=== PATIENT | male | born 1990 | race Hispanic/Latino ===

== ENCOUNTER 2018-08-11 12:37 | Inpatient (IN) | payer OTHER ==
[~2018-08-11] VITALS: Ht 152.4 cm; Wt 69.9 kg
[2018-08-11] VITALS: BP 125/73
[2018-08-11] MEDS ORDERED: IPRATROPIUM/ALBUTEROL SULFATE 3 ML SOLUTION IH ONE ×2 (13:19→16:42)
[2018-08-11 13:39] LABS: BASOPHILS % (AUTO) 0.3 % (0.0-5.0); HEMATOCRIT 43.3 % (42-54); LYMPHOCYTES % (AUTO) 17.3 % (21.0-51.0); MEAN CORPUSCULAR HEMOGLOBIN 28.8 pg (27.0-33.0); MEAN CORPUSCULAR HGB CONC 33.3 g/dL (32.0-36.0); MEAN CORPUSCULAR VOLUME 86.3 fL (79-99); MONOCYTES % (AUTO) 11.7 % (3.0-13.0); NEUTROPHILS % (AUTO) 69.7 % (40.0-77.0); NUCLEATED RED BLOOD CELLS 0.1 % (0.0-0.19); PLATELET COUNT (AUTO) 443 K/uL (130-400); RED BLOOD CELL COUNT(AUTO) 5.02 MIL/uL (4.50-6.20); RED CELL DISTRIBUTION WIDTH 13.1 % (11.0-15.5); WHITE BLOOD COUNT (AUTO) 11.8 K/uL (4.8-10.8)
[2018-08-11 13:47] LABS: CREATININE 0.9 mg/dL (0.5-1.5); POTASSIUM 3.4 mmol/L (3.5-5.1)
[2018-08-11 13:52] LABS: BILIRUBIN,TOTAL 0.8 mg/dL (0.2-1.0); TOTAL PROTEIN, SERUM 8.9 g/dL (6.0-8.3)
[2018-08-11] MEDS ORDERED: ACETAMINOPHEN EXTRA STRENGTH 500 MG TABLET ONE (14:57)
[2018-08-11] MEDS ORDERED: METHYLPREDNISOLONE SOD SUCC 125MG/2ML VIAL ONE (17:26)
[2018-08-11] MEDS ORDERED: CEFTRIAXONE SODIUM 1 GM ONE (18:05)
[2018-08-11] MEDS ORDERED: AZITHROMYCIN 250 MG TABLET PO ONE (18:06)
[2018-08-11] MEDS: SODIUM CHLORIDE 0.9% 1000ML 1,000 ML IV SCH (19:20)
[2018-08-11] MEDS ORDERED: ACETAMINOPHEN 325 MG TAB PO PRN ×2 (19:30)
[2018-08-11] MEDS ORDERED: AZITHROMYCIN 500MG+NS 250ML 250 ML IV SCH (19:30)
[2018-08-11] MEDS ORDERED: CEFTRIAXONE SODIUM 1 GM IV SCH (19:30)
[2018-08-11] MEDS ORDERED: METHYLPREDNISOLONE SOD SUCC 125MG/2ML VIAL IV SCH (19:30)
[2018-08-11] MEDS ORDERED: ONDANSETRON HCL 4 MG/2 ML VIAL IV PRN (19:30)
[2018-08-11] MEDS ORDERED: GUAIFENESIN-CODEINE 5 ML SYRUP ONE (20:28)
[2018-08-11] MEDS ORDERED: ENOXAPARIN SODIUM 30 MG/0.3 ML SQ ONE (20:28)
[2018-08-11] MEDS ORDERED: FAMOTIDINE/PF 20 MG/2 ML VIAL IV ONE (20:29)
[2018-08-11] MEDS: FAMOTIDINE/PF 20 MG/2 ML VIAL IV SCH (21:00)
[2018-08-11] MEDS: ENOXAPARIN SODIUM 30 MG/0.3 ML SQ SCH (21:00)
[2018-08-11 21:48] VITALS: BP 123/66
--- NOTE | 2018-08-11 23:00 | NUR ---
SINUS TACHYCARDIA Patient's heart rate has been sinus tachycardia since admission. Patient's vital signs are stable and with normal limit. Called RICARDO Buchanan to inform him of patient's heart rate. RICARDO is aware and states it may be due to the breathing treatments. Patient is currently on Albuterol Q6. Will continue to monitor patient.
[2018-08-11] MEDS: ALBUTEROL SULFATE 0.083% 2.5 MG/3 ML INH IH SCH (23:08)
[2018-08-12] VITALS (7 sets, daily range): BP systolic 117–130; BP diastolic 73–85
[2018-08-12] MEDS ORDERED: MORPHINE SULFATE 2 MG/ML 1ML SYG ONE (00:54)
[2018-08-12] MEDS ORDERED: METHYLPREDNISOLONE SOD SUCC 125MG/2ML VIAL IV SCH (01:00)
[2018-08-12] MEDS ORDERED: MORPHINE SULFATE 4 MG/1ML SYG IV PRN (01:00)
[2018-08-12] MEDS ORDERED: MORPHINE SULFATE 2 MG/ML 1ML SYG IVP PRN (01:00)
[2018-08-12] MEDS: SODIUM CHLORIDE 0.9% 1000ML 1,000 ML IV SCH ×4 (04:10→21:21)
[2018-08-12] MEDS: GUAIFENESIN-CODEINE 5 ML SYRUP PO PRN (04:11)
[2018-08-12] MEDS: ALBUTEROL SULFATE 0.083% 2.5 MG/3 ML INH IH SCH ×3 (06:07→18:54)
[2018-08-12] MEDS: FAMOTIDINE/PF 20 MG/2 ML VIAL IV SCH ×2 (10:28→20:42)
[2018-08-12] MEDS: POTASSIUM CHLORIDE 20 MEQ ERTAB PO SCH (10:28)
[2018-08-12] MEDS: ENOXAPARIN SODIUM 30 MG/0.3 ML SQ SCH ×2 (10:29→20:43)
--- NOTE | 2018-08-12 14:46 | NUR ---
DCP CM met with pt [employer] guard at bedside. Pt under care of [employer] custody, independent with ambulation and ADL's. Denies any equipments/services. DC plan w/INS. CM to cont to follow up. Addendum: 08/12/18 at 1447 by MIKY CONWAY LVN CM Amended: Links added.
[2018-08-12] MEDS: CEFTRIAXONE SODIUM 1 GM IV SCH (17:56)
[2018-08-12] MEDS: METHYLPREDNISOLONE SOD SUCC 40MG/ML 1ML IVP SCH (17:56)
[2018-08-12] MEDS: AZITHROMYCIN 500MG+NS 250ML 250 ML IV SCH (17:56)
[2018-08-13] MEDS: ALBUTEROL SULFATE 0.083% 2.5 MG/3 ML INH IH SCH ×4 (00:32→18:21)
[2018-08-13] MEDS: METHYLPREDNISOLONE SOD SUCC 40MG/ML 1ML IVP SCH ×2 (01:02→09:12)
[2018-08-13] MEDS: GUAIFENESIN-CODEINE 5 ML SYRUP PO PRN ×4 (01:08→21:18)
[2018-08-13 03:24] VITALS: BP 113/74
[2018-08-13] MEDS: SODIUM CHLORIDE 0.9% 1000ML 1,000 ML IV SCH (04:38)
[2018-08-13 08:00] VITALS: BP 126/76
[2018-08-13] MEDS: ENOXAPARIN SODIUM 30 MG/0.3 ML SQ SCH ×2 (09:13→20:42)
[2018-08-13] MEDS: FAMOTIDINE/PF 20 MG/2 ML VIAL IV SCH ×2 (09:13→20:43)
[2018-08-13] MEDS: POTASSIUM CHLORIDE 20 MEQ ERTAB PO SCH (09:15)
[2018-08-13 11:19] LABS: BASOPHILS % (AUTO) 0.2 % (0.0-5.0); CREATININE 0.8 mg/dL (0.5-1.5); HEMATOCRIT 36.5 % (42-54); LYMPHOCYTES % (AUTO) 9.8 % (21.0-51.0); MEAN CORPUSCULAR HGB CONC 33.4 g/dL (32.0-36.0); MEAN CORPUSCULAR VOLUME 86.7 fL (79-99); MONOCYTES % (AUTO) 6.4 % (3.0-13.0); NEUTROPHILS % (AUTO) 83.6 % (40.0-77.0); PLATELET COUNT (AUTO) 423 K/uL (130-400); POTASSIUM 4.5 mmol/L (3.5-5.1); RED BLOOD CELL COUNT(AUTO) 4.21 MIL/uL (4.50-6.20); RED CELL DISTRIBUTION WIDTH 13.3 % (11.0-15.5); WHITE BLOOD COUNT (AUTO) 14.3 K/uL (4.8-10.8)
[2018-08-13 12:00] VITALS: BP 115/77
[2018-08-13 16:00] VITALS: BP 124/75
[2018-08-13] MEDS: AZITHROMYCIN 500MG+NS 250ML 250 ML IV SCH (18:15)
[2018-08-13] MEDS: CEFTRIAXONE SODIUM 1 GM IV SCH (18:15)
[2018-08-13 19:46] VITALS: BP 123/72
[2018-08-13] MEDS: PREDNISONE 20 MG TABLET PO SCH (20:42)
[2018-08-14] MEDS: ALBUTEROL SULFATE 0.083% 2.5 MG/3 ML INH IH SCH ×3 (00:09→10:42)
[2018-08-14 00:22] VITALS: BP 117/82
[2018-08-14 04:06] VITALS: BP 114/79
[2018-08-14 05:30] LABS: BASOPHILS % (AUTO) 0.1 % (0.0-5.0); HEMATOCRIT 38.2 % (42-54); LYMPHOCYTES % (AUTO) 16.5 % (21.0-51.0); MEAN CORPUSCULAR HEMOGLOBIN 29.7 pg (27.0-33.0); MEAN CORPUSCULAR HGB CONC 33.9 g/dL (32.0-36.0); MEAN CORPUSCULAR VOLUME 87.7 fL (79-99); MONOCYTES % (AUTO) 6.1 % (3.0-13.0); NEUTROPHILS % (AUTO) 77.3 % (40.0-77.0); PLATELET COUNT (AUTO) 411 K/uL (130-400); RED BLOOD CELL COUNT(AUTO) 4.36 MIL/uL (4.50-6.20); RED CELL DISTRIBUTION WIDTH 13.4 % (11.0-15.5)
[2018-08-14 05:50] LABS: CREATININE 0.8 mg/dL (0.5-1.5); POTASSIUM 4.6 mmol/L (3.5-5.1)
[2018-08-14 08:00] VITALS: BP 109/71
[2018-08-14] MEDS: FAMOTIDINE/PF 20 MG/2 ML VIAL IV SCH (08:07)
[2018-08-14] MEDS: PREDNISONE 20 MG TABLET PO SCH (08:07)
[2018-08-14] MEDS: ENOXAPARIN SODIUM 30 MG/0.3 ML SQ SCH (08:08)
[2018-08-14] MEDS: POTASSIUM CHLORIDE 20 MEQ ERTAB PO SCH (08:08)
[2018-08-14] MEDS: GUAIFENESIN-CODEINE 5 ML SYRUP PO PRN ×2 (08:08→15:57)
[2018-08-14] MEDS ORDERED: LEVO500T2 PO (09:47)
[2018-08-14] MEDS ORDERED: METH4TAB3 PO (09:47)
[2018-08-14] MEDS ORDERED: GUAI5SYR PO (09:47)
== END 2018-08-14 17:15 | DRG 195 ==
LOC: EDH 12:37 → EDHIP 12:38 → EEVIPCON 12:38 → 3DH 21:43
PROVIDERS: ADMIT Internal Medicine; ATTEND Internal Medicine
DX: J18.9 Pneumonia, unspecified organism (principal); J45.909 Unspecified asthma, uncomplicated; E87.6 Hypokalemia; K21.9 Gastro-esophageal reflux disease without esophagitis; J98.01 Acute bronchospasm
CPT/HCPCS: 36415; 71045; 80048; 80053; 85025; 87071; 87205; 87486; 87581; 87633; 87798; 94640; 94664; A4218; G0378; J0456; J0696; J1650; J2920; J2930; J3490; J7030